=== PATIENT | female | born 1955 | race Caucasian/White ===

== ENCOUNTER 2017-03-31 04:55 | Observation (INO) | payer MEDICARE, OTHER ==
[~2017-03-31] VITALS: Ht 157.5 cm; Wt 54.5 kg
[~2017-03-31 04:55] MED LIST: ASPIR 8181 MG PO; DILTIAZEM ER180 M1 PO; FIORICET TAB1 EA MT; GLUCOPHAGE500 MG PO; HABITROL 21 MG P1 EA TOP; HYDROCHLOROTHIA25 MG PO; IMDUR ER TAB 3030 MG PO; LIPITOR TAB 2020 MG PO; LISINOPRIL10 MG PO; LISINOPRIL20 MG PO; LOPRESSOR 50 MG50 MG PO; MIRTAZAPINE15 MG PO; NEURONTIN 300300 MG PO; NIFEDIPINE ER60 M1 PO; NORCO 5-325 TA1 EACH PO; PLAVIX75 MG PO; PROTONIX40 MG PO; PROZAC40 MG PO; RANEXA500 MG PO; RESTORIL 15 MG15 MG MT; TOPAMAX100 MG PO; TOPROL XL50 MG PO; TYLENOL 325MG325 MG PO; ZESTRIL20 MG PO; ZESTRIL5 MG PO; ZOCOR40 MG PO; ZOFRAN4 MG PO
[2017-03-31 08:44] LABS: RED BLOOD COUNT 3.92 M/UL (4.00-5.10)
[2017-03-31 08:53] LABS: BUN/CREATININE RATIO 16 (0-10)
[2017-04-01 07:17] LABS: HEMOGLOBIN 12.9 gm/dl (12.3-15.3); RED BLOOD COUNT 4.23 M/UL (4.00-5.10); WHITE BLOOD COUNT 8.6 K/UL (4.5-11.0)
[2017-04-01 07:40] LABS: BUN/CREATININE RATIO 17 (0-10)
[2017-04-01] MEDS ORDERED: ASPIRIN CHEWABL81 MG PO (17:01)
[2017-04-01] MEDS ORDERED: METOPROLOL TART25 MG PO (17:01)
[2017-04-01] MEDS ORDERED: PROTONIX40 MG PO (17:02)
== END 2017-04-01 17:51 | disposition home or self-care (01) ==
LOC: ER1 04:55 → ZEROF 10:00 → M/S 10:00
PROVIDERS: Physician Assistant; ADMIT Hospitalist
DX: R55 Syncope and collapse (principal); G92 Toxic encephalopathy; E87.6 Hypokalemia; I65.23 Occlusion and stenosis of bilateral carotid arteries; I10 Essential (primary) hypertension; E11.9 Type 2 diabetes mellitus without complications; I25.10 Atherosclerotic heart disease of native coronary artery without angina pectoris; G89.29 Other chronic pain; J44.9 Chronic obstructive pulmonary disease, unspecified; F17.210 Nicotine dependence, cigarettes, uncomplicated; Z98.61 Coronary angioplasty status; Z86.73 Personal history of transient ischemic attack (TIA), and cerebral infarction without residual deficits; Z85.89 Personal history of malignant neoplasm of other organs and systems; Z90.49 Acquired absence of other specified parts of digestive tract; Z90.710 Acquired absence of both cervix and uterus; Z87.442 Personal history of urinary calculi; Z79.891 Long term (current) use of opiate analgesic; Z79.82 Long term (current) use of aspirin; Z79.899 Other long term (current) drug therapy
CPT/HCPCS: ECHO; 36415; 36600; 70450; 70551; 71020; 72100; 72125; 73502; 80048; 80053; 80307; 82140; 82550; 82553; 82803; 82962; 83690; 83735; 83874; 84146; 84484; 85025; 85610; 93005; 93306; 93880; 99284; G0378; J2310

== ENCOUNTER 2021-02-07 20:41 | Emergency (ER) | payer OTHER ==
[~2021-02-07 20:41] MED LIST changes: +ALL DAY ALLERGY10 M3 PO; +AMLODIPINE BESYL5 MG PO; +ASPIRIN CHEWABL81 MG PO; +CATAPRES 0.1MG0.1 MG PO; +CLOPIDOGREL75 MG PO; +FIORICET TAB1 EA PO; +FOLIC ACID 1 MG1 MG PO; +IMODIUM CAP 2 MG2 MG PO; +LEVAQUIN500 MG PO; +LIPITOR TAB 1010 MG PO; +LOPRESSOR 25 MG25 MG PO; +METOPROLOL TART25 MG PO; +MYSOLINE50 MG PO; +NORVASC10 MG PO; +PREDNISOLONE ACE5 ML EYEBOTH; +PREDNISOLONE OP; +PRIMIDONE50 MG PO; +REFRESH PLUS1 EACH OU; +SINGULAIR10 MG PO; +THERAGRAN M TAB1 EA PO; +VENTOLIN HFA 66.7 GM INH; +VITAMIN B-121000 MC3 PO; +VITAMIN D32000 UNI1 PO; +ZESTRIL2.5 MG PO; +ZOLOFT50 MG PO
[2021-02-08 00:29] LABS: HEMOGLOBIN 13.5 gm/dl (12.3-15.3); RED BLOOD COUNT 4.46 M/UL (4.00-5.10); WHITE BLOOD COUNT 5.5 K/UL (4.5-11.0)
[2021-02-08] MEDS ORDERED: STROMECTOL3 MG PO (04:01)
[2021-02-08] MEDS ORDERED: ALBENDAZOLE200 MG PO (04:01)
[2021-02-08] MEDS ORDERED: ZOFRAN 4 MG TAB4 MG PO (04:26)
[2021-02-08] MEDS ORDERED: COLACE 100MG C100 MG PO (04:27)
== END 2021-02-08 04:55 | disposition home or self-care (01) ==
LOC: ER1 20:41
PROVIDERS: Emergency Medicine
DX: B82.9 Intestinal parasitism, unspecified (principal); Z20.822 Contact with and (suspected) exposure to COVID-19
CPT/HCPCS: 70450; 71045; 80053; 81001; 83690; 85025; 93005; 96374; 96375; 99284; J2270; J2405; Q9967; U0002

== ENCOUNTER → 2021-03-18 | Outpatient (CLI) | payer OTHER ==
[~2021-03-18] MED LIST changes: +ALBENDAZOLE200 MG PO; +ANORO ELLIPTA1 EACH INH; +ASPIRIN EC81 MG PO; +COLACE 100MG C100 MG PO; +LIPITOR80 MG PO; +MECLIZINE HCL25 MG PO; +MIRTAZAPINE7.5 MG PO; +PEPCID40 MG PO; +PLAVIX 75 MG TA75 MG PO; +ROPINIROLE HCL0.5 MG PO; +STROMECTOL3 MG PO; +ZESTRIL10 MG PO; +ZOFRAN 4 MG TAB4 MG PO
== END ==
LOC: RAD 18:13
DX: R07.89 Other chest pain (principal); J84.9 Interstitial pulmonary disease, unspecified
CPT/HCPCS: 71046

== ENCOUNTER 2021-04-01 23:30 | Emergency (ER) | payer OTHER ==
[~2021-04-01 23:30] MED LIST changes: -ANORO ELLIPTA1 EACH INH; -ASPIRIN EC81 MG PO; -LIPITOR80 MG PO; -MECLIZINE HCL25 MG PO; -MIRTAZAPINE7.5 MG PO; -PEPCID40 MG PO; -PLAVIX 75 MG TA75 MG PO; -ROPINIROLE HCL0.5 MG PO; -ZESTRIL10 MG PO
[2021-04-02 00:17] LABS: BUN/CREATININE RATIO 13 (0-10)
[2021-04-02 00:22] LABS: HEMOGLOBIN 13.7 gm/dl (12.3-15.3); RED BLOOD COUNT 4.42 M/UL (4.00-5.10); WHITE BLOOD COUNT 7.6 K/UL (4.5-11.0)
== END 2021-04-02 05:15 | disposition home or self-care (01) ==
LOC: ER1 23:30
PROVIDERS: Student in an Organized Health Care Education/Training Program
DX: R51.9 Headache, unspecified (principal); F17.210 Nicotine dependence, cigarettes, uncomplicated; Z86.73 Personal history of transient ischemic attack (TIA), and cerebral infarction without residual deficits; Z88.8 Allergy status to other drugs, medicaments and biological substances; Z79.01 Long term (current) use of anticoagulants; Z79.02 Long term (current) use of antithrombotics/antiplatelets
CPT/HCPCS: 36600; 70450; 71045; 80053; 80307; 81001; 82550; 82553; 82803; 83605; 83690; 83735; 83874; 84100; 84484; 85025; 85610; 85730; 93005; 96374; 99284; G0480; J2765

== ENCOUNTER 2021-06-07 04:14 | Observation (INO) | payer OTHER ==
[~2021-06-07] VITALS: Ht 160 cm; Wt 55.3 kg
[2021-06-07 05:08] LABS: HEMOGLOBIN 11.4 gm/dl (12.3-15.3); RED BLOOD COUNT 3.75 M/UL (4.00-5.10); WHITE BLOOD COUNT 6.7 K/UL (4.5-11.0)
[2021-06-07] MEDS ORDERED: PLAVIX 75 MG TA75 MG PO (11:57)
[2021-06-07] MEDS ORDERED: PEPCID40 MG PO (11:58)
[2021-06-07] MEDS ORDERED: NORVASC10 MG PO (11:58)
[2021-06-07] MEDS ORDERED: TOPAMAX100 MG PO (11:59)
[2021-06-07] MEDS ORDERED: ROPINIROLE HCL0.5 MG PO (11:59)
[2021-06-07] MEDS ORDERED: ZESTRIL10 MG PO (12:49)
[2021-06-07] MEDS ORDERED: ZESTRIL20 MG PO (12:50)
[2021-06-07] MEDS ORDERED: ANORO ELLIPTA1 EACH INH (12:58)
[2021-06-07] MEDS ORDERED: MECLIZINE HCL25 MG PO (13:03)
[2021-06-07] MEDS ORDERED: LIPITOR80 MG PO (14:02)
[2021-06-07] MEDS ORDERED: MIRTAZAPINE7.5 MG PO (14:03)
[2021-06-08 02:46] LABS: HEMOGLOBIN 10.6 gm/dl (12.3-15.3); RED BLOOD COUNT 3.52 M/UL (4.00-5.10); WHITE BLOOD COUNT 5.2 K/UL (4.5-11.0)
[2021-06-08] MEDS ORDERED: ASPIRIN EC81 MG PO (11:00)
== END 2021-06-08 18:31 | disposition home or self-care (01) ==
LOC: ER1 04:14 → CDU 09:12 → MED SURG 4 09:12
PROVIDERS: Emergency Medicine; Physician Assistant; ADMIT Internal Medicine Infectious Disease
DX: T43.621A Poisoning by amphetamines, accidental (unintentional), initial encounter (principal); T40.0X1A Poisoning by opium, accidental (unintentional), initial encounter; G92 Toxic encephalopathy; Z20.822 Contact with and (suspected) exposure to COVID-19; F11.10 Opioid abuse, uncomplicated; F15.10 Other stimulant abuse, uncomplicated; E87.6 Hypokalemia; N17.9 Acute kidney failure, unspecified; I25.10 Atherosclerotic heart disease of native coronary artery without angina pectoris; E78.5 Hyperlipidemia, unspecified; Z90.49 Acquired absence of other specified parts of digestive tract; I11.0 Hypertensive heart disease with heart failure; I50.32 Chronic diastolic (congestive) heart failure; E11.9 Type 2 diabetes mellitus without complications; Z88.8 Allergy status to other drugs, medicaments and biological substances; K83.8 Other specified diseases of biliary tract
CPT/HCPCS: 36415; 70450; 72131; 80048; 80053; 80307; 81001; 82550; 82553; 83735; 83874; 84132; 84484; 85025; 94640; 94760; 96365; 96366; 96375; 96376; 99285; G0378; J2060; J2550; J3480; J7030; Q9967; U0002

== ENCOUNTER 2021-09-30 20:13 | Emergency (ER) | payer OTHER ==
[~2021-09-30 20:13] MED LIST changes: +ANORO ELLIPTA1 EACH INH; +ASPIRIN EC81 MG PO; +LIPITOR80 MG PO; +MECLIZINE HCL25 MG PO; +MIRTAZAPINE7.5 MG PO; +PEPCID40 MG PO; +PLAVIX 75 MG TA75 MG PO; +ROPINIROLE HCL0.5 MG PO; +ZESTRIL10 MG PO
[2021-09-30 23:45] LABS: RED BLOOD COUNT 3.41 M/UL (4.00-5.10); WHITE BLOOD COUNT 7.7 K/UL (4.5-11.0)
[2021-10-01 00:14] LABS: BUN/CREATININE RATIO 15 (0-10)
== END 2021-10-01 10:02 | disposition home or self-care (01) ==
LOC: ER1 20:13
PROVIDERS: Family Medicine
DX: R41.82 Altered mental status, unspecified (principal); R10.9 Unspecified abdominal pain; Z90.710 Acquired absence of both cervix and uterus; F17.210 Nicotine dependence, cigarettes, uncomplicated
CPT/HCPCS: 70450; 71045; 80053; 80307; 81001; 82550; 82553; 82962; 83690; 84484; 85025; 93005; 99284; J7030; Q9967

== ENCOUNTER 2021-11-11 01:27 | Emergency (ER) | payer OTHER ==
[2021-11-11 01:49] LABS: RED BLOOD COUNT 2.51 M/UL (4.00-5.10); WHITE BLOOD COUNT 6.3 K/UL (4.5-11.0)
[2021-11-11 02:07] LABS: HEMOGLOBIN 6.7 gm/dl (12.3-15.3)
[2021-11-11 05:50] LABS: HEMOGLOBIN 6.3 gm/dl (12.3-15.3)
[2021-11-11 16:04] LABS: WHITE BLOOD COUNT 6.1 K/UL (4.5-11.0)
[2021-11-11 16:08] LABS: HEMOGLOBIN 9.9 gm/dl (12.3-15.3); RED BLOOD COUNT 3.71 M/UL (4.00-5.10)
[2021-11-12 14:13] LABS: HEMATOCRIT 20.9 % (34.0-46.6)
== END 2021-11-12 21:45 | disposition short-term general hospital (02) ==
LOC: ER1 01:27
PROVIDERS: Emergency Medicine; Internal Medicine
DX: K92.2 Gastrointestinal hemorrhage, unspecified (principal); D64.9 Anemia, unspecified; J32.9 Chronic sinusitis, unspecified; Z20.822 Contact with and (suspected) exposure to COVID-19; I25.10 Atherosclerotic heart disease of native coronary artery without angina pectoris; I10 Essential (primary) hypertension
CPT/HCPCS: 51702; 70450; 73502; 73552; 73562; 80048; 80307; 81001; 82272; 82607; 82747; 82962; 83540; 83550; 83605; 83735; 85014; 85018; 85025; 86850; 86900; 86901; 86920; 93005; 96365; 96366; 96375; 99284; C9113; J0696; P9016; U0002

== ENCOUNTER 2021-12-12 02:56 | Emergency (ER) | payer OTHER ==
[2021-12-12 06:44] LABS: HEMOGLOBIN 8.3 gm/dl (12.3-15.3); RED BLOOD COUNT 3.27 M/UL (4.00-5.10); WHITE BLOOD COUNT 9.6 K/UL (4.5-11.0)
[2021-12-12 07:07] LABS: BUN/CREATININE RATIO 18 (0-10)
== END 2021-12-13 09:55 | disposition home or self-care (01) ==
LOC: ER1 02:56
PROVIDERS: Family Medicine
DX: F15.10 Other stimulant abuse, uncomplicated (principal); F17.210 Nicotine dependence, cigarettes, uncomplicated; Z86.73 Personal history of transient ischemic attack (TIA), and cerebral infarction without residual deficits
CPT/HCPCS: 51701; 70450; 71045; 80053; 80307; 81001; 82550; 82553; 83874; 84484; 85025; 85610; 87086; 93005; 96374; 99285; G0480; J2310

== ENCOUNTER 2022-03-30 15:03 | Inpatient (IN) | payer OTHER ==
[~2022-03-30] VITALS: Ht 160 cm; Wt 56.7 kg
[~2022-03-30 15:03] MED LIST changes: -ZESTRIL10 MG PO
[2022-03-30 15:23] LABS: HEMOGLOBIN 9.8 gm/dl (12.3-15.3); RED BLOOD COUNT 3.98 M/UL (4.00-5.10); WHITE BLOOD COUNT 6.1 K/UL (4.5-11.0)
[2022-03-30 15:50] LABS: BUN/CREATININE RATIO 15 (0-10)
[2022-03-30] MEDS ORDERED: CILOSTAZOL100 MG PO (17:39)
[2022-03-30] MEDS ORDERED: ASPIRIN EC81 MG PO (17:39)
[2022-03-30] MEDS ORDERED: QUETIAPINE FUMA25 MG PO (17:40)
[2022-03-30] MEDS ORDERED: PHENERGAN 25 MG25 M1 PO (17:40)
[2022-03-31 06:44] LABS: HEMOGLOBIN 9.1 gm/dl (12.3-15.3); RED BLOOD COUNT 3.59 M/UL (4.00-5.10); WHITE BLOOD COUNT 4.7 K/UL (4.5-11.0)
[2022-03-31 07:33] LABS: BUN/CREATININE RATIO 12 (0-10)
--- NOTE | 2022-03-31 08:56 | NUR ---
US TECT NOTIFIED ME THAT THR R CAROTID ON THE PATIENT WAS OCCLUDED DURING HER EXAM. I CALLED WITH NEURO AND HE STATES THAT THIS ISAN OLD FINDING AND THAT THERE IS NO NEED TO DO ANYTHING AT THIS TIME. NO NEW ORDERS GIVEN.
--- NOTE | 2022-03-31 09:12 | NUR ---
PATIENT COMPLAINS OF SEVERE PAIN. PROVIDER CONTACTED AND NEW ORDERS GIVEN.
[2022-03-31] MEDS ORDERED: CLOPIDOGREL75 MG PO (10:44)
[2022-03-31] MEDS ORDERED: ASPIRIN EC81 MG PO (10:44)
[2022-03-31] MEDS ORDERED: KEPPRA500 MG PO ×2 (10:45→12:02)
== END 2022-03-31 14:24 | disposition home or self-care (01) | DRG 92 ==
LOC: ER1 15:03 → MED SURG 4 17:12 → CDU 17:12 → MED SURG 4 20:07
PROVIDERS: Family Medicine; Physician Assistant; Preventive Medicine Occupational Medicine; ADMIT Internal Medicine
DX: G92.8 Other toxic encephalopathy (principal); I50.32 Chronic diastolic (congestive) heart failure; R56.9 Unspecified convulsions; D64.9 Anemia, unspecified; E11.9 Type 2 diabetes mellitus without complications; F17.200 Nicotine dependence, unspecified, uncomplicated; I25.10 Atherosclerotic heart disease of native coronary artery without angina pectoris; G20 Parkinson's disease; Z86.73 Personal history of transient ischemic attack (TIA), and cerebral infarction without residual deficits; Z85.038 Personal history of other malignant neoplasm of large intestine; Z20.822 Contact with and (suspected) exposure to COVID-19; E78.5 Hyperlipidemia, unspecified; I11.0 Hypertensive heart disease with heart failure; Z87.442 Personal history of urinary calculi; Z90.710 Acquired absence of both cervix and uterus; Z90.49 Acquired absence of other specified parts of digestive tract; Z88.8 Allergy status to other drugs, medicaments and biological substances; Z79.82 Long term (current) use of aspirin; Z79.02 Long term (current) use of antithrombotics/antiplatelets; F17.210 Nicotine dependence, cigarettes, uncomplicated; Z79.899 Other long term (current) drug therapy; Z82.3 Family history of stroke; Z80.0 Family history of malignant neoplasm of digestive organs
CPT/HCPCS: 0240U; 36415; 36600; 51702; 70450; 71045; 80053; 80307; 81001; 82140; 82550; 82553; 82803; 83605; 83735; 84439; 84443; 84484; 85025; 85610; 85730; 93005; 93882; 96374; 96375; 97116; 97161; 97166; 99285; G0480; J1953; J2310

== ENCOUNTER 2022-04-13 17:03 | Inpatient (IN) | payer OTHER ==
[~2022-04-13] VITALS: Ht 160 cm; Wt 59.6 kg
[~2022-04-13 17:03] MED LIST changes: +CILOSTAZOL100 MG PO; +KEPPRA500 MG PO; +PHENERGAN 25 MG25 M1 PO; +QUETIAPINE FUMA25 MG PO
[2022-04-13 18:41] LABS: BUN/CREATININE RATIO 21 (0-10)
[2022-04-13 18:56] LABS: HEMOGLOBIN 7.9 gm/dl (12.3-15.3); RED BLOOD COUNT 3.17 M/UL (4.00-5.10); WHITE BLOOD COUNT 6.6 K/UL (4.5-11.0)
[2022-04-14 03:32] LABS: BUN/CREATININE RATIO 17 (0-10)
[2022-04-14 03:40] LABS: HEMOGLOBIN 8.1 gm/dl (12.3-15.3); RED BLOOD COUNT 3.33 M/UL (4.00-5.10); WHITE BLOOD COUNT 6.8 K/UL (4.5-11.0)
[2022-04-14] MEDS ORDERED: GLUCOPHAGE 500500 MG GT (06:32)
[2022-04-14] MEDS ORDERED: ASPIRIN EC81 MG PO (10:54)
[2022-04-14] MEDS ORDERED: CLOPIDOGREL75 MG PO (10:55)
[2022-04-14] MEDS ORDERED: LEVETIRACETAM500 MG PO (10:55)
[2022-04-14] MEDS ORDERED: CILOSTAZOL100 MG PO (10:56)
--- NOTE | 2022-04-15 22:11 | NUR ---
PATIENT DICHARGED HOME. REINA DOUGHERTY ACCOMPANIED THE PATIENT OUT IN A WHEELCHAIR WHERE VENTURE [facility]S WAS WAITING TO ESCORT THE PATIENT TO HER RESIDENCE.
== END 2022-04-15 22:02 | disposition home or self-care (01) | DRG 69 ==
LOC: ER1 17:03 → CDU 18:30 → PROG CARE 18:30
PROVIDERS: Preventive Medicine Occupational Medicine; ADMIT Internal Medicine
PROC: B24BZZZ Ultrasonography of Heart with Aorta (ICD-10-PCS; principal; 2022-04-14)
DX: G45.9 Transient cerebral ischemic attack, unspecified (principal); I69.352 Hemiplegia and hemiparesis following cerebral infarction affecting left dominant side; I50.32 Chronic diastolic (congestive) heart failure; J44.9 Chronic obstructive pulmonary disease, unspecified; Z20.822 Contact with and (suspected) exposure to COVID-19; G20 Parkinson's disease; G40.909 Epilepsy, unspecified, not intractable, without status epilepticus; D64.9 Anemia, unspecified; F41.9 Anxiety disorder, unspecified; F32.A Depression, unspecified; R51.9 Headache, unspecified; F19.10 Other psychoactive substance abuse, uncomplicated; I65.29 Occlusion and stenosis of unspecified carotid artery; I11.0 Hypertensive heart disease with heart failure; E78.5 Hyperlipidemia, unspecified; E11.9 Type 2 diabetes mellitus without complications; F17.200 Nicotine dependence, unspecified, uncomplicated; I25.10 Atherosclerotic heart disease of native coronary artery without angina pectoris; K06.9 Disorder of gingiva and edentulous alveolar ridge, unspecified; R29.707 NIHSS score 7; K21.9 Gastro-esophageal reflux disease without esophagitis; R29.810 Facial weakness; Z79.82 Long term (current) use of aspirin; Z79.899 Other long term (current) drug therapy; I25.2 Old myocardial infarction; Z95.5 Presence of coronary angioplasty implant and graft; Z85.038 Personal history of other malignant neoplasm of large intestine; Z98.890 Other specified postprocedural states; Z90.710 Acquired absence of both cervix and uterus; Z90.49 Acquired absence of other specified parts of digestive tract; Z87.440 Personal history of urinary (tract) infections; Z91.048 Other nonmedicinal substance allergy status; Z82.3 Family history of stroke; Z82.49 Family history of ischemic heart disease and other diseases of the circulatory system; Z95.810 Presence of automatic (implantable) cardiac defibrillator
CPT/HCPCS: ECHO; 70450; 70496; 70498; 70551; 71045; 80053; 80307; 81001; 82140; 82550; 82553; 82962; 83605; 83690; 83735; 83880; 84132; 84439; 84443; 84484; 85025; 85610; 85652; 85730; 86140; 87086; 92507; 92610; 93005; 93306; 96372; 96374; 96375; 97110-GP-CQ; 97116; 97116-GP-CQ; 97162; 97166; 99285; C9113; G0378; G0480; J1170; J1650; J1953; J2270; J2405; J3475; Q9967

== ENCOUNTER 2022-06-08 16:38 | Emergency (ER) | payer OTHER ==
[~2022-06-08 16:38] MED LIST changes: +GLUCOPHAGE 500500 MG GT; +LEVETIRACETAM500 MG PO
[2022-06-08 17:45] LABS: HEMOGLOBIN 9.1 gm/dl (12.3-15.3); RED BLOOD COUNT 3.71 M/UL (4.00-5.10); WHITE BLOOD COUNT 6.9 K/UL (4.5-11.0)
== END 2022-06-08 19:09 | disposition home or self-care (01) ==
LOC: ER1 16:38
PROVIDERS: Emergency Medicine
DX: R55 Syncope and collapse (principal); R51.9 Headache, unspecified; F17.200 Nicotine dependence, unspecified, uncomplicated; Z86.73 Personal history of transient ischemic attack (TIA), and cerebral infarction without residual deficits; Z20.822 Contact with and (suspected) exposure to COVID-19; Z88.8 Allergy status to other drugs, medicaments and biological substances; Z79.82 Long term (current) use of aspirin; Z79.02 Long term (current) use of antithrombotics/antiplatelets
CPT/HCPCS: 0241U; 70450; 71045; 80053; 80307; 81001; 82550; 82553; 84484; 85025; 93005; 96374; 96375; 99285; J1200; J2765